=== PATIENT | male | born 1985 | race Caucasian/White ===

== ENCOUNTER 2016-09-14 08:52 | Day surgery (SDC) | payer OTHER ==
[2016-09-13 11:27] VITALS: BMI 29.5
[2016-09-14] MEDS ORDERED: BUPIVACAINE HCL 0.25% 125 MG/50 ML VIAL ONE (11:10)
[2016-09-14] MEDS ORDERED: MIDAZOLAM HCL 2 MG/2 ML SINGLE DOSE VIAL ONE (11:37)
[2016-09-14] MEDS ORDERED: LIDOCAINE HCL/PF 2% SDV 5ML VIAL ONE (11:38)
[2016-09-14] MEDS ORDERED: PROPOFOL 20 ML ONE (11:39)
[2016-09-14] MEDS ORDERED: KETOROLAC TROMETHAMINE 30 MG/1 ML VIAL IVPUSH ONE (12:48)
[2016-09-14] MEDS ORDERED: LACTATED RINGERS SOLUTION 1,000 ML IV SCH (13:00)
[2016-09-14] MEDS ORDERED: oxyCODONE HCL 5 MG TABLET PO PRN (14:26)
[2016-09-14] MEDS ORDERED: ONDANSETRON 4 MG/2 ML VIAL IVPUSH PRN (14:26)
[2016-09-14] MEDS ORDERED: PROMETHAZINE HCL 25 MG/1 ML VIAL IVPUSH PRN (14:27)
[2016-09-14 15:49] VITALS: BP 115/65; PULSE 71; TEMP 98.1
--- NOTE | 2016-09-15 07:48 | OP ---
DATE OF OPERATION: 09/14/2016 PREOPERATIVE DIAGNOSIS: Right lateral meniscal tear. POSTOPERATIVE DIAGNOSIS: Right lateral meniscal tear. PROCEDURE: Right knee arthroscopy with partial lateral meniscectomy. SURGEON: Kenton Red MD ANESTHESIA TYPE: General. TOURNIQUET TIME: 18 minutes. POSTOPERATIVE CONDITION: Stable. COMPLICATIONS: None. INDICATIONS: This is a pleasant 31-year-old gentleman who suffered an injury to the right knee, which on MRI was shown to be a lateral meniscus tear. He was having great difficulty walking and had a large effusion. Treatment options including nonoperative versus operative management were discussed. Operative risks were discussed in detail including bleeding, infection, neurovascular injury, need for further surgery, postoperative pain and stiffness, and progressive osteoarthritis. I reviewed medical risks such as heart attack, stroke, DVT, PE, and . The patient voiced understanding and elected to proceed. DESCRIPTION OF PROCEDURE: The patient was brought to the operating room where general anesthesia was administered. The right lower extremity was then prepped and draped in the usual sterile fashion. A preoperative dose of antibiotics was given, and the usual time-out procedure was performed. At this point, the limb was elevated, and the tourniquet was inflated to 250 mmHg. The arthroscopic portal sites were marked out, then incised using an 11 blade. The arthroscope was now passed into the knee. Examination of the patellofemoral joint demonstrated no significant lesions. The arthroscope was now passed into the notch. Here, the ACL and PCL were seen to be intact underneath the ligamentum mucosum. The arthroscope was now passed into the medial compartment. Here, no lesions were seen on the cartilage surfaces. The meniscus was probed and found to be stable. At this point, the arthroscope was passed into the lateral compartment. Here, a large undersurface tear was seen in the body of the lateral meniscus with a big flip-flap component. Using a combination of meniscal biters and a shaver, this was debrided down to a stable base. The knee was then copiously irrigated. Any excess fluid was withdrawn. The portals were sutured using 3-0 nylon. Sterile dressings were placed. The tourniquet was let down. The patient was extubated and transferred to the recovery room in stable condition. KENTON RED M.D. [id number] MTDD
== END 2016-09-14 14:10 | disposition home or self-care (01) ==
LOC: FASU 08:52
PROVIDERS: ATTEND Orthopaedic Surgery Sports Medicine
PROC: 0SBC4ZZ Excision of Right Knee Joint, Percutaneous Endoscopic Approach (ICD-10-PCS; principal; 2016-09-14 11:58)
DX: S83.281A Other tear of lateral meniscus, current injury, right knee, initial encounter (principal); X58.XXXA Exposure to other specified factors, initial encounter; Y93.9 Activity, unspecified; Y92.9 Unspecified place or not applicable; Y99.9 Unspecified external cause status
CPT/HCPCS: 94760